=== PATIENT | female | born 1955 | race Caucasian/White ===

== ENCOUNTER 2016-08-19 11:05 | Emergency (ER) | payer MEDICAID ==
[2016-08-19 11:23] VITALS: BP 157/86; PULSE 66; RESP 16; TEMP 96.8; O2SAT 98
[2016-08-19] MEDS ORDERED: ACETAMINOPHEN 325 MG TAB ONE (11:32)
[2016-08-19] MEDS ORDERED: ACETAMINOPHEN 325 MG TAB PO ONE (11:34)
--- NOTE | 2016-08-19 11:57 | UCPHY ---
H & P Time Seen by Provider: 08/19/16 11:26 Patient Type: Established HPI/ROS: 61-year-old female slipped landing initially on her tailbone and then hitting her head. Presents now complaining of swelling on her head as well as headache neck pain and tailbone pain. No numbness or tingling in extremities no loss of bowel or bladder control. Review of systems General no fever no chills no weakness HEENT no eye pain no eye discharge. No eye redness, no sore throat Respiratory no cough, no shortness of breath Cardiac no chest pain, no peripheral edema GI no abdominal pain, no diarrhea, no constipation, no nausea, no vomiting no flank pain, no hematuria, no dysuria Musculoskeletal Positive myalgias, no joint pain Heme no easy bruising, no easy bleeding Endo no polyuria, no polydipsia Skin no rashes, no pruritus Neuro no syncope, no dizziness, positive headaches Psych is no suicidal ideation, no homicidal ideation Past Medical/Surgical History: anxiety Social History: occasional alcohol, no drug use Smoking Status: Never smoked Physical Exam: 61-year-old female alert and oriented moderate distress secondary to head contusion, nontoxic appearance afebrile Normocephalic positive scalp hematoma at superior aspect of the back of occiput, no battles, no hemotympanum . Extraocular movements intact, anicteric neck supple lungs clear to auscultation bilaterally heart regular rate and rhythm Abdomen normoactive bowel sounds soft nontender back no swelling no ecchymosis positive tenderness to palpation at Superior aspect of gluteal cleft extending inferiorly to rectum no lumbar spine tenderness no hip tenderness extremities no cyanosis clubbing or edema neuro alert and oriented, no sensory or motor deficit noted, gait intact Constitutional: Initial Vital Signs Temperature (C) 36 C 08/19/16 11:20 Heart Rate 66 08/19/16 11:20 Respiratory Rate 16 08/19/16 11:20 Blood Pressure 157/86 H 08/19/16 11:20 O2 Sat (%) 98 08/19/16 11:20 O2 Delivery Mode Room Air Allergies/Adverse Reactions: latex Allergy (Verified 08/19/16 11:23) Home Medications: Medication Instructions Recorded LORazepam 02/27/15 Hydrocodone/Acetaminophen [[place] 1 - 2 tab PO Q6H PRN #20 tab 08/19/16 5/325 (*)] Medical Decision Making - Diagnostics Imaging: CT head negative for intracranial injury positive for scalp hematoma CT neck positive for degenerative spine disease, no acute fracture or subluxation coccyx negative for fracture ED Course/Re-evaluation: patient seen and evaluated for head injury, mild neck pain and coccyx pain after slipping on ice imaging as documented above CT scan head negative CT neck degenerative disease and coccyx negative for fracture impression scalp hematoma mild cervical strain coccyx contusion concussion plan education about each of these diagnoses given Rx for pain medication patient advised to use stool softener follow up with primary care physician - [place] Medications Given: Discontinued Medications Acetaminophen (Tylenol) 650 mg PO EDNOW ONE Stop: 08/19/16 11:35 Last Admin: 08/19/16 11:30 Dose: 650 mg Departure - Departure Disposition: Home, Routine, Self-Care Clinical Impression: Scalp hematoma, Coccyx contusion Condition: Good Instructions: Contusion in Adults (ED), Concussion (ED), Coccyx Injury (ED) Referrals: [place],. [Primary Care Provider] - As per Instructions Prescriptions: Hydrocodone/Acetaminophen [[place] 325 (*)] 1 - 2 tab PO Q6H PRN #20 tab PRN Reason: Pain, Moderate - PQRS PQRS Measurement: na
--- NOTE | 2016-08-19 12:33 | DX ---
Sacrum and coccyx 3 views History: Slipped on ice with severe tailbone pain. Comparison: None available. Findings: The sacroiliac joints and pubic symphysis are normal. No displaced fracture is identified. There is mild degenerative change in the lower lumbar spine, sacroiliac joints and hips. Alignment of the left hip is normal. Bowel gas pattern is normal. Impression: No displaced fracture identified.
--- NOTE | 2016-08-19 12:54 | CT ---
CT Head Without Contrast History: Fall onto occiput, headache. Comparison: CT cervical spine from the same day. Technique: Axial unenhanced images were obtained from the vertex through the skull base. Dose reducti on techniques were utilized. Findings: There is a moderate posterior scalp hematoma. Lucas-white differentiation is preserved. The ventricles and sulci are normal. No intracranial hemorrhage is identified. Subtle hypodensities in the basal ganglia may be related to prominent perivascular spaces or less likely old lacunar infarct s. No extraaxial fluid collections are identified. There is no mass effect or definite evidence of in farct. Atherosclerotic calcification is present in the distal internal carotid arteries. The skull a nd skull base are unremarkable. There is minimal (less than 10%) fluid opacification of the inferior right mastoid air cells without osseous destruction to suggest mastoiditis. Minimal mucous membrane thickening is present in the paranasal sinuses. Impression: 1. Scalp hematoma with no acute intracranial findings. 2. Additional findings as above. Findings discussed with Nora Kilpatrick today at 1257 hours.
--- NOTE | 2016-08-19 13:03 | CT ---
CT Cervical Spine Without Contrast History: Slipped and fell on ice with pain. Comparison: CT head same day. Plain film cervical spine March 12, 2015. Technique: Multislice helical CT through the cervical spine without contrast from the skull base to T 1. Soft tissue and bone evaluation is performed. Sagittal and coronal reconstructions are obtained an d reviewed. Dose reduction techniques were utilized. Findings: There is no significant change in 2 mm of anterolisthesis of C3 on C4 and C4 on C5 with 2 m m of retrolisthesis of C5 on C6. No fracture is identified. The relationship between the skull base a nd C1 is normal. The C1-C2 articulation is normal. Mild to moderate vertebral and uncovertebral spond ylosis is present at C5-C6 with mild vertebral and uncovertebral spondylosis throughout the remainder of the cervical spine. Moderate left facet hypertrophy is present from C2 through C4 with moderate r ight facet hypertrophy most prominent at C3-C5 and C7-T1. The cervical thoracic junction is normal. T here is no visible epidural or prevertebral hematoma. Atherosclerotic calcification is present at the carotid bifurcations. Impression: 1. Multilevel degenerative change with spondylolistheses with no acute osseous findings If there is p ersistent pain or neurologic deficit, consider MRI and/or flexion and extension views, if clinically indicated. 2. Additional findings, as above. Findings discussed with Nora Kilpatrick today at 1257 hours.
== END 2016-08-19 13:23 | disposition home or self-care (01) ==
LOC: CED 11:05
DX: S00.03XA Contusion of scalp, initial encounter (principal); S06.0X9A Concussion with loss of consciousness of unspecified duration, initial encounter; S39.92XA Unspecified injury of lower back, initial encounter; W01.0XXA Fall on same level from slipping, tripping and stumbling without subsequent striking against object, initial encounter; M50.30 Other cervical disc degeneration, unspecified cervical region; M47.892 Other spondylosis, cervical region
CPT/HCPCS: 70450-PO; 72125-PO; 72220-PO; 99215-PO; G0463-PO

== ENCOUNTER → 2017-05-26 | Outpatient (CLI) | payer MEDICAID | LOC: BRMIMAGING 13:31 | PROVIDERS: ATTEND Family Medicine | DX: Z12.31 Encounter for screening mammogram for malignant neoplasm of breast (principal); Z13.820 Encounter for screening for osteoporosis; M85.80 Other specified disorders of bone density and structure, unspecified site | CPT/HCPCS: G0202 ==

== ENCOUNTER → 2018-06-10 | Outpatient (CLI) | payer OTHER | LOC: CIMAGING 07:23 | PROVIDERS: ATTEND Family Medicine | DX: R10.11 Right upper quadrant pain (principal); R16.0 Hepatomegaly, not elsewhere classified | CPT/HCPCS: 76705-PO ==

== ENCOUNTER → 2018-06-24 | Outpatient (CLI) | payer OTHER | LOC: BHFA 13:15 | PROVIDERS: ATTEND Internal Medicine Interventional Cardiology | DX: R00.2 Palpitations (principal); R94.31 Abnormal electrocardiogram [ECG] [EKG] ==

== ENCOUNTER → 2019-01-01 | Outpatient (CLI) | payer OTHER ==
[~2019-01-01] MED LIST: IOPAMIDOL (ISOVUE-300) 100 ML BTL ONE
== END ==
LOC: CIMAGING 12:19
PROVIDERS: ATTEND Specialist
DX: J32.9 Chronic sinusitis, unspecified (principal)
CPT/HCPCS: 70487; Q9967; 82565-PO